=== PATIENT | male | born 1995 | race Caucasian/White ===

== ENCOUNTER 2021-09-12 18:04 | Emergency (ER) | payer SELFPAY ==
[2021-09-12 18:52] VITALS: BP 135/92
== END 2021-09-13 00:20 | disposition left against medical advice (07) ==
LOC: ED 18:04
DX: M79.605 Pain in left leg (principal); R11.2 Nausea with vomiting, unspecified; Z53.21 Procedure and treatment not carried out due to patient leaving prior to being seen by health care provider